=== PATIENT | male | born 1990 | race African-American/Black ===

== ENCOUNTER 2017-03-15 05:38 | Emergency (ER) | payer OTHER ==
[~2017-03-15] VITALS: Ht 188 cm; Wt 113.4 kg
[2017-03-15] MEDS ORDERED: IBUPROFEN 800 MG TAB PO ONE (07:30)
[2017-03-15 07:47] VITALS: BP 135/85
== END 2017-03-15 07:52 | disposition home or self-care (01) ==
LOC: ER 05:42
DX: S76.012A Strain of muscle, fascia and tendon of left hip, initial encounter (principal); X50.9XXA Other and unspecified overexertion or strenuous movements or postures, initial encounter; Y93.89 Activity, other specified; Y92.89 Other specified places as the place of occurrence of the external cause; Y99.8 Other external cause status
CPT/HCPCS: 73502; 99284; J7030